=== PATIENT | female | born 1930 | race Caucasian/White ===

== ENCOUNTER 2020-11-24 12:36 | Inpatient (IN) | payer MEDICARE, OTHER ==
[~2020-11-24] VITALS: Ht 165.1 cm; Wt 72.8 kg
[2020-11-24] VITALS (129 sets, daily range): BP systolic 112–130; BP diastolic 62–66; PULSE 68–90; TEMP 98.6–101.3; O2SAT 59–100
[2020-11-24 13:16] LABS: ARTERIAL BLD GAS O2 SATURATION 95.3 % (92-100); ARTERIAL BLD GAS TCO2 CT 21.9; ARTERIAL BLOOD GAS BASE EXCESS -1.2 (-2-2); ARTERIAL BLOOD GAS PCO2 27.6 mmHg (35-45); ARTERIAL BLOOD GAS PO2 73.4 mmHg (80-100)
[2020-11-24 13:33] LABS: HEMOGLOBIN 10.1 g/dl (12.5-16.0); MEAN CELL VOLUME 99 fl (80.0-100.0); MEAN CORPUSCULAR HEMOGLOBIN 31 pg (27.0-31.0); MEAN CORPUSCULAR HGB CONC 32 g/dl (33.0-37.0); MEAN PLATELET VOLUME 9.3 fl (7.4-10.4); PLATELET COUNT 200 K/mm3 (130-400); RED BLOOD COUNT 3.24 M/mm3 (4.10-5.30); REDCELL DISTRIBUTION WIDTH-CV 13.9 % (11.5-14.5)
[2020-11-24 13:38] LABS: HEMATOCRIT 31.9 % (37.0-47.0)
[2020-11-24 13:39] LABS: INR 1.4 (0.8-3.0); PROTHROMBIN TIME 15.4 SECONDS (9.7-12.8)
[2020-11-24 13:53] LABS: ALBUMIN 3.5 gm/dL (3.4-4.8); BILIRUBIN,TOTAL 0.8 mg/dL (0.2-1.2); CALCIUM 9.2 mg/dL (8.4-10.2); CREATININE, serum 0.75 mg/dL (0.57-1.11); POTASSIUM 4.1 mmol/L (3.5-4.5)
[2020-11-24 13:59] LABS: TROPONIN-I 0.016 ng/mL (0.00-0.033)
[2020-11-24 14:12] LABS: MAGNESIUM 1.7 mg/dL (1.6-2.6); PHOSPHOROUS 3.5 mg/dL (2.3-4.7)
[2020-11-24 14:17] LABS: BAND 22 % (0-10); EOSINOPHIL 2 % (0-4); LYMPHOCYTE 24 % (20.0-51.0); MYELOCYTE 4 % (0-0); NEUTROPHILS 48 % (42.0-75.2); PLATELET ESTIMATE NORMAL (NORMAL)
[2020-11-24 14:18] LABS: POLYCHROMASIA 1+
[2020-11-24 14:41] LABS: COLLECTION METHOD CLEAN CATCH
[2020-11-24 14:51] LABS: PH 5 (5-8); SQUAMOUS EPITHELIAL None Seen /hpf; URINE APPEARANCE Cloudy; URINE BACTERIA None Seen /hpf; URINE BILIRUBIN Negative (NEGATIVE); URINE BLOOD 3+ (NEGATIVE); URINE COLOR Red; URINE GLUCOSE Negative (NEGATIVE); URINE KETONE Negative (NEGATIVE); URINE LEUKOCYTE ESTERASE 2+ (NEGATIVE); URINE NITRATE Negative (NEGATIVE); URINE PROTEIN(semi-quant) 2+ (NEGATIVE); URINE RBC >50 /hpf; URINE UROBILINOGEN Negative (NEGATIVE)
[2020-11-24] MEDS ORDERED: LOTENSIN40 MG PO (17:43)
[2020-11-24] MEDS ORDERED: COLACE 100100 MG/CAP PO (17:44)
[2020-11-24] MEDS ORDERED: TEGRETOL 1100 MG/TAB PO (17:44)
[2020-11-24] MEDS ORDERED: HCTZ 25MG TAB25 MG PO (17:45)
[2020-11-24] MEDS ORDERED: MIRALAX PA17 GM/Dose PO (17:46)
[2020-11-24] MEDS ORDERED: PRILOSEC 20MG20 MG PO (17:46)
[2020-11-24] MEDS ORDERED: SYNTHROID 0.10.15 MG PO (17:47)
[2020-11-24] MEDS ORDERED: PRAVACHOL 40MG40 MG PO (17:47)
[2020-11-24] MEDS ORDERED: COUMADIN 1MG1 MG/TAB PO (17:48)
[2020-11-24] MEDS ORDERED: XANAX 0.5MG0.5 MG PO (17:48)
[2020-11-24] MEDS ORDERED: ZOLOFT 100MG100 MG PO (17:49)
[2020-11-24] MEDS ORDERED: ELIQUIS 5MG PO (18:26)
[2020-11-24] MEDS ORDERED: VOLTAREN GEL 1%1 TU TP (18:27)
[2020-11-24] MEDS ORDERED: CRANBERRY250 MG PO (18:29)
[2020-11-24] MEDS ORDERED: ZESTRIL2.5 MG PO (18:29)
[2020-11-24] MEDS ORDERED: CEPHALEXIN500 M1 PO (18:32)
[2020-11-24] MEDS ORDERED: TYLENOL 325MG325 MG PO (18:44)
[2020-11-24] MEDS ORDERED: DESYREL 50MG50 MG PO (18:46)
[2020-11-24] MEDS ORDERED: IPRATROPIUM BROM3 M1 IH (18:46)
[2020-11-24] MEDS ORDERED: MULTI-VITAMIN W1 TA1 PO (19:46)
[2020-11-24] MEDS ORDERED: XANAX 1MG1 MG PO (19:52)
--- NOTE | 2020-11-24 21:19 | NUR ---
Assessment complete and charted. Patient alert but not orienetated. Repositioned in bed. Denies needs at this time. Call light in reach.
--- NOTE | 2020-11-24 23:31 | NUR ---
Temp elevated. Tylenol given.
[2020-11-25] VITALS (240 sets, daily range): BP systolic 112–151; BP diastolic 67–87; PULSE 58–89; TEMP 97.5–100.1; O2SAT 48–100
[2020-11-25 05:40] LABS: MEAN CELL VOLUME 100 fl (80.0-100.0); MEAN CORPUSCULAR HGB CONC 31 g/dl (33.0-37.0); MEAN PLATELET VOLUME 9.7 fl (7.4-10.4); PLATELET COUNT 126 K/mm3 (130-400); RED BLOOD COUNT 2.86 M/mm3 (4.10-5.30); REDCELL DISTRIBUTION WIDTH-CV 14.3 % (11.5-14.5)
--- NOTE | 2020-11-25 06:10 | NUR ---
Cardizem was stopped at 0020 for a pulse of 58. Patient treated for fever during night. Otherwise VS stable. Patient UOP 31ml/hr. Monserrat OVALLE aware. Patient getting IVF. Repositioned Q2H. Resting in bed this AM. Call light in reach.
[2020-11-25 06:13] LABS: ALBUMIN 2.8 gm/dL (3.4-4.8); ALKALINE PHOSPHATASE 53 U/L (0-750); ANION GAP 11 mmol/L (7-16); AST,SGOT 20 U/L (5-34); BILIRUBIN,TOTAL 0.6 mg/dL (0.2-1.2); BLOOD UREA NITROGEN 12 mg/dL (10-20); CARBON DIOXIDE 19 mmol/L (23-31); CHLORIDE 113 mmol/L (98-107); CREATININE, serum 0.78 mg/dL (0.57-1.11); GLUCOSE 85 mg/dL (70-99); POTASSIUM 3.8 mmol/L (3.5-4.5); SODIUM 143 mmol/L (136-145)
[2020-11-25 06:16] LABS: HEMATOCRIT 28.7 % (37.0-47.0); MEAN CORPUSCULAR HEMOGLOBIN 31 pg (27.0-31.0)
[2020-11-25 06:17] LABS: INR 1.7 (0.8-3.0); PROTHROMBIN TIME 18.5 SECONDS (9.7-12.8)
[2020-11-25 06:18] LABS: ALANINE AMINOTRANSFERASE < 6 U/L (0-55)
--- NOTE | 2020-11-25 07:00 | NUR ---
PT RESTING IN BED. PT VSS. PT IS AFIB WITH PACED BEATS. PT HAS BEEN OFF CARDIZEM DRIP SINCE 0000. WILL CONTINUE TO [facility].
[2020-11-25 07:11] LABS: BAND 71 % (0-10); LYMPHOCYTE 4 % (20.0-51.0); METAMYELOCYTE 3 % (0-0); NEUTROPHILS 17 % (42.0-75.2)
[2020-11-25 07:13] LABS: HYPOCHROMIA 1+; PLATELET ESTIMATE NORMAL (NORMAL)
--- NOTE | 2020-11-25 07:21 | NUR ---
Report given to OMAR Barrios
--- NOTE | 2020-11-25 10:00 | NUR ---
SPOKE WITH REGARDING BC'S AND PLAN FOR PT. WILL CONSULT FOR ABX AND ANTIFUNGAL RECCOMENDATIONS. BEDSIDE AND NOTIFIED OF DILT DRIP OFF SINCE 0000. WILL START ON PO. CALL PLACED TO FOR CONSULT.
--- NOTE | 2020-11-25 11:52 | NUR ---
REPORT GIVEN TO ARCENIO NELSON. ALL QUESTIONS ANSWERED. PT HAVING AN ECHO COMPLETED THEN WILL TRANSFER TO ROOM 325. PT'S DAUGHTER MERRY NOTIFIED.
--- NOTE | 2020-11-25 12:56 | NUR ---
REPORT FROM BEATRIZ NELSON. PT ORIENTED TO ROOM. INITIAL ASESSMENTS COMPLETE. VSS. 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 GRIER TO DD WITH TEA COLORED URINE IN BAG.
[2020-11-26 04:22] VITALS: BP 144/71; PULSE 63; TEMP 98
[2020-11-26 07:18] LABS: MEAN CELL VOLUME 99 fl (80.0-100.0); MEAN CORPUSCULAR HGB CONC 32 g/dl (33.0-37.0); MEAN PLATELET VOLUME 10.5 fl (7.4-10.4); PLATELET COUNT 165 K/mm3 (130-400); RED BLOOD COUNT 2.53 M/mm3 (4.10-5.30); REDCELL DISTRIBUTION WIDTH-CV 14.4 % (11.5-14.5)
[2020-11-26 07:20] LABS: INR 2.1 (0.8-3.0); PROTHROMBIN TIME 23.3 SECONDS (9.7-12.8)
[2020-11-26 07:22] LABS: MEAN CORPUSCULAR HEMOGLOBIN 32 pg (27.0-31.0)
[2020-11-26 07:43] LABS: BILIRUBIN,TOTAL 0.4 mg/dL (0.2-1.2); CALCIUM 7.8 mg/dL (8.4-10.2); POTASSIUM 3.5 mmol/L (3.5-4.5)
[2020-11-26 07:50] LABS: ANISOCYTOSIS 1+; BAND 17 % (0-10); EOSINOPHIL 1 % (0-4); HYPOCHROMIA 1+; LYMPHOCYTE 4 % (20.0-51.0); NEUTROPHILS 74 % (42.0-75.2); PLATELET ESTIMATE NORMAL (NORMAL)
[2020-11-26 08:00] VITALS: BP 145/89; PULSE 84; TEMP 97.5
[2020-11-26 09:11] LABS: ALBUMIN 2.8 gm/dL (3.4-4.8); CREATININE, serum 0.76 mg/dL (0.57-1.11); TOTAL PROTEIN 5.9 gm/dL (6.2-8.1)
--- NOTE | 2020-11-26 10:55 | NUR ---
PT REPOSITIONED PRN TO RELIVE PRESSURE ON COCCYX. PT ASSISTED WITH CLEAR LIQUID TRAY. IV TO RIGHT HAND PATENT. GRIER CATHETER TO DD WITH TEA COLORED URINE.
[2020-11-26 12:41] VITALS: BP 145/74; PULSE 60; TEMP 98.1
--- NOTE | 2020-11-26 12:43 | NUR ---
UPDATED DR. LEVY AND DR. COLE ON LABS AND PT CONDITIONS.
--- NOTE | 2020-11-26 14:11 | NUR ---
Micki met with the pt, daughter, Natalee briggs ) who stated her mother will return back to [facility]. The pt has lived there for 4 years. The pt needs help with all ADLS and can feed herself.The pt gets around in a wheelchair. The pt PCP is the who sees all pt at at [place]. The pt gets her medications from [facility]. The daughter informed me that the pt might be on a cather for the rest of her life. No other needs stated at this time. Sw to await further reocommendations and follow up as needed. D/c: [facility].
[2020-11-26 16:19] VITALS: BP 187/82; PULSE 88; TEMP 97.4
[2020-11-26 19:38] VITALS: BP 144/83; PULSE 52; TEMP 98.4
[2020-11-26 23:05] VITALS: BP 161/65; PULSE 61; TEMP 98.4
[2020-11-27] VITALS (10 sets, daily range): BP systolic 145–191; BP diastolic 50–93; PULSE 60–84; TEMP 97.6–99
[2020-11-27 06:51] LABS: INR 1.9 (0.8-3.0); PROTHROMBIN TIME 21.2 SECONDS (9.7-12.8)
[2020-11-27 06:55] LABS: BASO # 0.1 (0.0-0.2); BASO % 0.3 % (0.0-2.0); EOS # 0.1 (0.0-0.7); EOS % 0.4 % (0-4.0); GRAN # 16.3 (1.4-6.5); GRAN % 89.6 % (42.2-75.2); LYMPH # 0.9 (1.2-3.4); LYMPH % 4.8 % (20.0-51.0); MEAN CELL VOLUME 96 fl (80.0-100.0); MEAN CORPUSCULAR HGB CONC 32 g/dl (33.0-37.0); MEAN PLATELET VOLUME 10.5 fl (7.4-10.4); MONO # 0.7 (0.1-0.6); MONO % 3.6 % (1.7-9.3); PLATELET COUNT 194 K/mm3 (130-400); RED BLOOD COUNT 2.81 M/mm3 (4.10-5.30)
[2020-11-27 07:01] LABS: HEMATOCRIT 27.1 % (37.0-47.0); HEMOGLOBIN 8.7 g/dl (12.5-16.0); MEAN CORPUSCULAR HEMOGLOBIN 31 pg (27.0-31.0)
[2020-11-27 07:05] LABS: RETIC # 0.07 M/mm3 (0.02-0.16); RETIC % 2.6 % (0.5-3.52)
[2020-11-27 07:09] LABS: ALBUMIN 2.9 gm/dL (3.4-4.8); BILIRUBIN,TOTAL 0.6 mg/dL (0.2-1.2); CALCIUM 8.3 mg/dL (8.4-10.2); CREATININE, serum 0.71 mg/dL (0.57-1.11); MAGNESIUM 2.3 mg/dL (1.6-2.6); POTASSIUM 3.3 mmol/L (3.5-4.5); TOTAL PROTEIN 6.5 gm/dL (6.2-8.1)
[2020-11-27 07:43] LABS: IRON,SERUM 14 ug/dL (50-175)
[2020-11-27 08:06] LABS: TOTAL IRON BINDING CAPACITY 212 ug/dL (265-497)
--- NOTE | 2020-11-27 08:51 | NUR ---
Patient alert this am. Repositioned in bed. Griffith care given. skin assessment completed. Spoke with hospitalist about diet, awaiting at consult for diet. Patient denies pain. Denies Shortness or breath, but does seem a little labored in her breathing. Patient left hand very contractured. weakness to left leg. Unable to wiggle her toes. Patient reports she is wheelchair bound. Will closely monitor.
--- NOTE | 2020-11-27 11:13 | NUR ---
Patient blood pressure elevated. am medication lowered it minimally. Ruby Castro made aware & orders obtained. Medication per orders. Speech in to work with patient
--- NOTE | 2020-11-27 16:19 | NUR ---
Clinical updates faxed to [facility] and message left for Hui who is covering for
--- NOTE | 2020-11-27 19:18 | NUR ---
Patient doing much better this evening. Almost 2L urine after receieving Iv Lasix. Griffith was hand irrgated this afternoon, & sediment & mucus present. Griffith draining much improved after. full bed change this afternoon prior to irrigation. Griffith cath had leaked. New allyven foam to coccyx. Also small stool noted. Patient breathing much improved, less labored. Vss on room air. BP improved. Patient daughter had been at bedside today. Patient repositioned in bed today for comfort. Minimal interest in her [facility] soft, nector thick diet. She did take pills crushed with apple sauce & do well without coughing. Bedside report to Keyanna
[2020-11-28] VITALS (8 sets, daily range): BP systolic 144–185; BP diastolic 57–87; PULSE 58–81; TEMP 97.4–98.5
[2020-11-28 06:25] LABS: MEAN CELL VOLUME 97 fl (80.0-100.0); MEAN CORPUSCULAR HGB CONC 32 g/dl (33.0-37.0); MEAN PLATELET VOLUME 9.9 fl (7.4-10.4); PLATELET COUNT 206 K/mm3 (130-400); RED BLOOD COUNT 2.85 M/mm3 (4.10-5.30); REDCELL DISTRIBUTION WIDTH-CV 14.1 % (11.5-14.5)
[2020-11-28 06:27] LABS: HEMATOCRIT 27.5 % (37.0-47.0); HEMOGLOBIN 8.7 g/dl (12.5-16.0); MEAN CORPUSCULAR HEMOGLOBIN 31 pg (27.0-31.0)
[2020-11-28 06:45] LABS: CALCIUM 8.8 mg/dL (8.4-10.2); CREATININE, serum 0.69 mg/dL (0.57-1.11); MAGNESIUM 2.3 mg/dL (1.6-2.6); POTASSIUM 3.4 mmol/L (3.5-4.5)
[2020-11-28 07:50] LABS: BAND 16 % (0-10); EOSINOPHIL 1 % (0-4); LYMPHOCYTE 13 % (20.0-51.0); NEUTROPHILS 67 % (42.0-75.2); PLATELET ESTIMATE NORMAL (NORMAL)
--- NOTE | 2020-11-28 13:44 | NUR ---
The hospitalist notified TASHA that the patient is going to need IV antibiotics until 12/08: IV Zosyn every 8 hours and IV Eraxis once a day. TASHA notified OMAR Muñoz, at [facility] of this. Wanda reports that they would be able to accomodate those antibiotics for her. TASHA updated the hospitalist and the patient's daughter, Natalee. TASHA then received a phone call from Sophy at [facility]. TASHA updated Sophy about the antibiotics. Sophy requested updates for their DON to review. TASHA faxed updates to [facility]. Awaiting confirmation from [facility] that they can do the antibiotics that are being recommended.
--- NOTE | 2020-11-28 19:00 | NUR ---
Patient has been doing better this afternoon. Her daughter came to [facility] and started crying because she was worried about how patient was breathing. Assessed patients lungs and breathing but her abbey sounds were better than this morning. Explained this to her daughter. Patients BP was elevated. New medication ordered for it. No other changes at this time. Call light within reach.
--- NOTE | 2020-11-29 00:38 | NUR ---
PT IS RESTING QUIETLY IN BED. HAVE BEEN TURNING PT Q 2HRS. WHILE TAKING MEDICATIONS EARLIER, PT HAD INITIALLY BEEN ABLE TO EASILY SWALLOW PILLS WITH PUDDING. LATER WHILE TAKING ANOTHER DOSE OF POTASSIUM, PT WOULD SPIT PILLS OUT BUT SWALLOW PUDDING. PILLS THEN WERE CRUSHED ET PUT INTO VANILLA PUDDING. PT STATES THAT SHE DOES NOT LIKE CHOCOLATE. PT CONTINUES TO BE ORIENTED ONLY TO SELF. SPEECH IS OCCASIONALLY GARBLED ET LEFT HAND HAS CONTRACTURE. PROTECTIVE BOOTS ON PT'S FEET. BED ALARM ON, CALL LIGHT WITHIN REACH.
[2020-11-29 03:05] VITALS: BP 175/80; PULSE 84; TEMP 97.5
--- NOTE | 2020-11-29 06:00 | NUR ---
PT RESTING QUIETLY IN BED. HAS BEEN REPOSITIONED ONTO LEFT SIDE. GRIER CATHETER DRAINING. ZOSYN IV INFUSING. PT IS GIVEN PO MEDS CRUSHED IN PUDDING. PT IS COOPERATIVE ET PLEASANT WITH CONFUSION. OFFERED ET GIVEN DRINK OF NECTAR THICK WATER. BED ALARM ON. CALL LIGHT WITHIN REACH.
[2020-11-29 06:33] VITALS: BP 166/69
--- NOTE | 2020-11-29 06:34 | NUR ---
PT STATES THAT SHE IS THIRSTY, HOB IS RAISED. ASSISTED TO DRINK NECTAR THICK WATER. PT COUGHS SHORTLY AFTER SWALLOWING.
[2020-11-29 06:51] LABS: MEAN CELL VOLUME 95 fl (80.0-100.0); MEAN CORPUSCULAR HGB CONC 32 g/dl (33.0-37.0); MEAN PLATELET VOLUME 10.5 fl (7.4-10.4); PLATELET COUNT 279 K/mm3 (130-400); RED BLOOD COUNT 2.88 M/mm3 (4.10-5.30); REDCELL DISTRIBUTION WIDTH-CV 14.1 % (11.5-14.5)
[2020-11-29 06:55] LABS: HEMATOCRIT 27.4 % (37.0-47.0); HEMOGLOBIN 8.8 g/dl (12.5-16.0); MEAN CORPUSCULAR HEMOGLOBIN 31 pg (27.0-31.0)
[2020-11-29 07:14] LABS: CREATININE, serum 0.7 mg/dL (0.57-1.11); POTASSIUM 3.2 mmol/L (3.5-4.5)
[2020-11-29 07:30] VITALS: BP 172/70; PULSE 66; TEMP 98.3
[2020-11-29 08:16] LABS: BAND 6 % (0-10); EOSINOPHIL 1 % (0-4); LYMPHOCYTE 30 % (20.0-51.0); METAMYELOCYTE 3 % (0-0); MYELOCYTE 1 % (0-0); NEUTROPHILS 50 % (42.0-75.2); NUCLEATED RED BLOOD CELL 2 (0-6); PLATELET ESTIMATE NORMAL (NORMAL)
--- NOTE | 2020-11-29 10:30 | NUR ---
Patient is discharging backt to [facility]F. Spoke with daughter about her discharging. She was worried about her discharging to early. Explained patient is doing much better and her lung sounds are better. Denies nausea or pain. She wanted to speak with the Doctor. Let Dr Alvarez know. No other changes at this time. Call light within reach. She's had a student providing cares this am. Bed alarm on.
[2020-11-29 10:50] VITALS: BP 176/90; PULSE 72; TEMP 97.2
[2020-11-29] MEDS ORDERED: IPRATROPIUM BROM3 M1 IH (11:54)
[2020-11-29] MEDS ORDERED: APRESOLINE 10MG10 MG PO (11:54)
[2020-11-29] MEDS ORDERED: TYLENOL 325MG325 MG PO (11:55)
[2020-11-29] MEDS ORDERED: ZESTRIL 5MG5 MG PO (11:55)
[2020-11-29] MEDS ORDERED: CARDIZEM CD 18180 MG PO (11:55)
[2020-11-29] MEDS ORDERED: CARDIZEM 60MG T60 MG PO (11:55)
[2020-11-29] MEDS ORDERED: ERAXIS100 MG IV (11:57)
[2020-11-29] MEDS ORDERED: ZOSYN 3 GM-0.371 PD1 IV (11:57)
[2020-11-29] MEDS ORDERED: ELIQUIS 2.5 PO (12:01)
[2020-11-29 13:13] VITALS: BP 156/78; PULSE 72; TEMP 97.2
--- NOTE | 2020-11-29 13:30 | NUR ---
The patient is discharge today, 11/29, back to [place] for a skilled stay. TASHA collaborated with the patient's RN and the patient received her IV Eraxis this morning. Transportation was scheduled at 1400, via [place]. TASHA informed the patient's RN and the daughter, Treasure, of the time. They were both agreeable to the time. TASHA read the IM form outloud to Treasure. Treasure verbalized understanding and gave SW approval to sign the form on her behalf. No additional needs at this time.
--- NOTE | 2020-11-29 13:45 | NUR ---
Patient is discharging back to [facility] ([place], [place]). She is being discharged with PICC line. Report called to RN resuming care. All belongings packed up and sent with patient. PICC care instructions printed and sent with patient. Daughter aware that patient is getting discharged.
== END 2020-11-29 13:45 | DRG 871 ==
LOC: COL.ER 12:36 → SURG 14:11 → ICU 14:11 → SURG 11-25 13:13
PROVIDERS: Emergency Medicine; Physician Assistant; ADMIT Internal Medicine
PROC: 02HV33Z Insertion of Infusion Device into Superior Vena Cava, Percutaneous Approach (ICD-10-PCS; principal; 2020-11-29)
DX: A41.81 Sepsis due to Enterococcus (principal); J96.01 Acute respiratory failure with hypoxia; E87.2 Acidosis; J90 Pleural effusion, not elsewhere classified; J98.11 Atelectasis; N13.2 Hydronephrosis with renal and ureteral calculous obstruction; E78.5 Hyperlipidemia, unspecified; I48.91 Unspecified atrial fibrillation; D64.9 Anemia, unspecified; E87.6 Hypokalemia; I11.0 Hypertensive heart disease with heart failure; Z66 Do not resuscitate; I50.9 Heart failure, unspecified; I25.10 Atherosclerotic heart disease of native coronary artery without angina pectoris; E03.9 Hypothyroidism, unspecified; F32.9 Major depressive disorder, single episode, unspecified; F41.9 Anxiety disorder, unspecified; K21.9 Gastro-esophageal reflux disease without esophagitis; G50.0 Trigeminal neuralgia; R13.10 Dysphagia, unspecified; I35.0 Nonrheumatic aortic (valve) stenosis; E87.70 Fluid overload, unspecified; Z95.0 Presence of cardiac pacemaker; Z79.01 Long term (current) use of anticoagulants; Z86.73 Personal history of transient ischemic attack (TIA), and cerebral infarction without residual deficits
CPT/HCPCS: 99223-AI; 99232-AI; 99233-AI; 99239; C1751; J0348; J0360; J1450; J1940; J2543; J7030